=== PATIENT | female | born 1980 | race Caucasian/White ===

== ENCOUNTER 2018-03-07 16:42 | Emergency (ER) | payer MEDICAID ==
[~2018-03-07] VITALS: Ht 170.2 cm; Wt 49.9 kg
[2018-03-07] MEDS ORDERED: LANTUS SOL100 UNIT/1 SUBQ ×2 (16:52→17:09)
[2018-03-07] MEDS ORDERED: HUMALOG100 UNIT/4 SUBQ (16:52)
[2018-03-07 16:59] VITALS: BP 119/72
[2018-03-07] MEDS ORDERED: GLUCOSE TEST S1 EACH MC (17:09)
[2018-03-07] MEDS ORDERED: HUMALOG100 UNIT/3 SUBQ (17:09)
--- NOTE | 2018-03-07 17:09 | Emergency Room Report ---
History of Present Illness General Chief Complaint: Medication Refill Source: Patient Present Illness HPI 37-year-old female patient presents ER requesting medication refill for Lantus and Humalog. Reports history of type 1 diabetes, states that her insurance is changing and she requires a new striction because she only has a few more days left of her insulin. Denies acute symptoms. Denies fever, chest pain, shortness of breath. Denies vomiting diarrhea. Denies dysuria, hematuria. Denies other acute symptoms. Allergies: Coded Allergies: PENICILLINS (Verified Allergy, Unknown, 03/07/18) Patient History Past Medical History: see triage record Last Menstrual Period: 01/05/18 Reviewed Nursing Documentation: PMH: Agreed; PSxH: Agreed Nursing Documentation-PMH Past Medical History: No History, Except For Hx Diabetes: Yes - type I Review of Systems All Other Systems: negative except mentioned in HPI Physical Exam Vital Signs Date Time Temp Pulse Resp B/P (MAP) Pulse Ox O2 Delivery O2 Flow Rate FiO2 03/07/18 16:48 98.2 102 18 119/72 96 Room Air 98.2 Sp02 EP Interpretation: reviewed, normal General Appearance: well appearing, no apparent distress, alert, GCS 15, non- toxic Head: normocephalic, atraumatic Eyes: bilateral eye normal inspection, bilateral eye PERRL ENT: hearing grossly normal, normal pharynx, no angioedema, normal voice, uvula midline, moist mucus membranes Neck: full range of motion Respiratory: lungs clear, normal breath sounds, no rhonchi, no respiratory distress, no accessory muscle use, no wheezing, speaking full sentences Cardiovascular #1: regular rate, rhythm, no edema Genitourinary: no CVA tenderness Musculoskeletal: back normal, digits/nails normal, gait/station normal, normal range of motion, non-tender Neurologic: alert, oriented x3, responsive, motor strength/tone normal, sensory intact Psychiatric: mood/affect normal Skin: no rash Medical Decision Making PA Attestation Dr. Cherry is my supervising Physician whom patient management has been discussed with. Diagnostic Impression: Primary Impression: Encounter for medication refill ER Course Pt. presents to the ED requesting prescription refill. Multiple differentials were considered. Vital signs: are WNL, pt. is afebrile ORDERS: PE benign, clear to auscultation, no abdominal tenderness to palpation. Denies acute symptoms. Informed patient would provide refill of medication. Informed patient ER does not normally provide refill of medications. Contact primary care provider for further treatment. Informed patient ER cannot provide refills in the future; followup, management and prescription of long-term medications must be performed by primary care provider. take medications as previously instructed and discuss with your primary care provider. Patient appears to have good knowledge of her medications and dosages to take them. Nontoxic appearing, no acute distress, okay for discharge to home. DISCHARGE: Rx provided for Humalog Rx provided for Lantus Rx provided for glucose test strips At this time pt is stable for d/c to home. Patient is resting comfortably, in no acute distress, nontoxic appearing, talking without difficulty, smiling and laughing. Patient to take medications as instructed Will provide with patient care instructions and any necessary prescriptions. Care plan and follow-up instructions provided. Patient instructed to follow-up with primary care provider in 3 - 5 days. Patient questions asked and answered. Patient reports understanding and agreement to treatment plan. ER precautions given. Patient instructed to return to ER immediately for any new or worsening of symptoms including but not limited to increasing SOB, persistent fever. - Please note that this Emergency Department Report was dictated using [employer] equipment repair technician technology software, occasionally this can lead to erroneous entry secondary to interpretation by the dictation equipment. Last Vital Signs Date Time Temp Pulse Resp B/P (MAP) Pulse Ox O2 Delivery O2 Flow Rate FiO2 03/07/18 16:59 98.2 102 18 119/72 96 Room Air 98.2 Disposition: HOME, SELF-CARE Condition: Stable Scripts Blood Sugar Diagnostic (GLUCOSE TEST STRIP) 1 Each Strip EACH , #100 Prov: Demarcus Quinonez 03/07/18 Insulin Glargine (LANTUS) 100 Unit/1 Ml Insuln.pen 0 SUBQ BEDTIME, #1 EA 0 Refills Prov: Demarcus Quinonez 03/07/18 Insulin Lispro (HUMALOG) 100 Unit/1 Ml Insuln.pen 0 SUBQ DAILY, #1 EA 0 Refills Prov: Demarcus Quinonez 03/07/18 Patient Instructions: Medicine Refill at the Emergency Department Additional Instructions: Followup with primary care provider discuss further treatment and management of diabetes. Take medications as directed. drink plenty of fluids, eat diabetes friendly diet. Patient questions asked and answered. ER precautions given, patient instructed to return to ER immediately for any new or worsening of symptoms. Demarcus Quinonez Mar 07, 2018 17:09
[2018-03-07 17:14] VITALS: BP 119/72
== END 2018-03-07 18:40 | disposition home or self-care (01) ==
LOC: EMR 18:31
DX: Z76.0 Encounter for issue of repeat prescription (principal); E10.8 Type 1 diabetes mellitus with unspecified complications; Z88.0 Allergy status to penicillin
CPT/HCPCS: 99284